=== PATIENT | male | born 1950 | race Caucasian/White ===

== ENCOUNTER 2018-03-27 09:53 | Outpatient (CLI) | payer OTHER ==
[~2018-03-27] VITALS: Ht 182.9 cm; Wt 88.5 kg
[~2018-03-27 09:53] MED LIST: AMLO5TAB7 PO; DLT240CCR PO; LOSA100T8 PO; METO100T5 PO; TRIA1CAP4 PO
== END 2018-03-27 10:12 | disposition home or self-care (01) ==
LOC: PREOP 09:53
PROVIDERS: ATTEND Surgery
DX: Z01.818 Encounter for other preprocedural examination (principal)

== ENCOUNTER → 2018-03-28 | Day surgery (SDC) | payer MEDICARE, OTHER ==
[~2018-03-28] VITALS: Ht 182.9 cm; Wt 88.5 kg
[~2018-03-28] MED LIST changes: +ACETAMINOPHEN 325 MG TABLET PO PRN; +HURRICAINE EXT TUBE (BENZOCAINE) ONE; +HYDROcodone/APAP 5 MG/325 MG (LORTAB) TAB PO PRN; +LIDOCAINE JELLY 2% 6 ML SYRINGE MM PRN; +LIDOCAINE JELLY 2% 6 ML SYRINGE ONE; +MIDAZOLAM 2 MG/2 ML (VERSED) VIAL IVP ONE; +MIDAZOLAM 2 MG/2 ML (VERSED) VIAL ONE; +NS IV 500 ML 500 ML ONE; +ONDANSETRON 4 MG/2 ML (SDV) Z0FRAN IV PRN; +fentaNYL INJECTION 100 MCG/2 ML AMP IVP ONE; +fentaNYL INJECTION 100 MCG/2 ML AMP ONE; +morphine INJ 10 MG/ML 1ML (SYR OR VIAL) IV PRN
[2018-03-28] MEDS: NS IV 500 ML 500 ML IV PRN ×2 (10:00→11:42)
[2018-03-28 10:08] VITALS: BP 132/81
--- NOTE | 2018-03-28 10:19 | Conscious Sedation/ASA ---
Conscious Sedation Pre-Proced Time 10:15 ASA Score 2 For ASA 3 and 4: Consider anesthesia and medical clearance. Also, for patients with a history of failed moderate sedation consider anesthesia. Airway Lungs Heart ASA score ASA 1: a normal healthy patient ASA 2: a patient with a mild systemic disease (mid diabetes, controlled hypertension, obesity ASA 3: a patient with a severe systemic disease that limits activity (angina , COPD, prior Myocardial infarction) ASA 4: a patient with an incapacitating disease that is a constant threat to life (CHF, renal failure) ASA 5: a moribund patient not expected to survive 24 hrs. (ruptured aneurysm) ASA 6: a declared brain patient whose organs are being harvested. For emergent operations, add the letter E after the classification Mallampati Classification Grade 2 Sedation Plan Analgesia, Amnesia, Plan communicated to team members, Discussed options with patient/fam, Discussed risks with patient/fam The patient is an appropriate candidate to undergo the planned procedure, sedation, and anesthesia. The patient immediately re-assessed prior to indication. SALVADOR ROBERTS MD Mar 28, 2018 10:19 am
--- NOTE | 2018-03-28 10:20 | Progress Note-Pre Operative ---
Pre-Operative Progress Note H&P Reviewed The H&P was reviewed, patient examined and no changes noted. Date Seen by Provider: Mar 28, 2018 Time Seen by Provider: 10:15 Date H&P Reviewed: Mar 28, 2018 Time H&P Reviewed: 10:15 Pre-Operative Diagnosis: screening colonoscopy SALVADOR ROBERTS MD Mar 28, 2018 10:20 am
--- NOTE | 2018-03-28 12:07 | Progress Note-Post Operative ---
Post-Operative Progess Note Surgeon (s)/Flight Radio Operator (s) Surgeon SALVADOR ROBERTS MD Flight Radio Operator: none Pre-Operative Diagnosis screening colonoscopy Post-Operative Diagnosis chronic stage 2 ext and int hemorrhoids, mild-mod sigmoid diverticulosis. Procedure & Operative Findings Date of Procedure 03/28/18 Procedure Performed/Findings Colonoscopy. Anesthesia Type CS Estimated Blood Loss Estimated blood loss (mL): minimal Specimens/Packing Specimens Removed none SALVADOR ROBERTS MD Mar 28, 2018 12:07 pm
--- NOTE | 2018-03-28 12:08 | Discharge Inst-Surgical ---
D/C Lap Instructions-ARMANDO Follow Up 10 yrs or PRN Activity as tolerated High Fiber Diet 25g or more per day Avoid Alcohol, Caffeine, Spicy [place] and Acid foods. Drink 64 fluid oz or more of fluids per day. Symptoms to Report: Fever over 101 degree F, Nausea/Vomiting If any problems/questions: Contact your physician or go to Emergency Room SALVADOR ROBERTS MD Mar 28, 2018 12:08 pm
[2018-03-28 12:20] VITALS: BP 118/65
[2018-03-28 12:45] VITALS: BP 110/70
[2018-03-28 14:02] VITALS: BP 110/70
--- NOTE | 2018-03-28 19:10 | OPERATIVE REPORT ---
DATE OF SERVICE: 03/28/2018 ATTENDING PRIMARY CARE PHYSICIAN: Dr. Greenfield. PREOPERATIVE DIAGNOSIS: Screening colonoscopy. POSTOPERATIVE DIAGNOSIS: Mild chronic stage II external and internal hemorrhoids, mild to moderate sigmoid diverticulosis. PROCEDURE: Colonoscopy. SURGEON: Salvador Roberts MD ANESTHESIA: Conscious sedation. ESTIMATED BLOOD LOSS: Minimal. FINDINGS: Chronic stage II external and internal hemorrhoids, not actively edematous nor inflamed and no bleeding. Prostate gland was palpable and appeared normal. There was mild to moderate sigmoid diverticulosis. There were no signs of diverticulitis or bleeding. The remainder of the colon was normal. DISPOSITION: The patient tolerated the procedure well. PROCEDURE IN DETAIL: The patient was brought to the endoscopy suite, laid in left lateral decubitus position. After adequate IV pain and sedative medications and conscious sedation anesthesia, a digital rectal examination was performed. Chronic mild stage II external and internal hemorrhoids were identified, which are not actively edematous or inflamed and no bleeding. Normal sphincter tone was felt and there were no palpable masses. Prostate gland was palpable and appeared normal. The endoscope was then intubated into the anus and the rectum gently insufflated. The endoscope was then advanced through the valves of [place] of the rectum with no polyps or any neoplasms identified. We then proceeded through the sigmoid colon where mild to moderate sigmoid diverticulosis identified. There were no mucosal inflammatory changes to indicate any active diverticulitis. There were also no polyps or any neoplasms identified. The endoscope was then advanced to the remainder of the descending, transverse and ascending colon of the cecum. These segments were normal. There were no polyps or any neoplasms identified throughout the colon or rectum. The endoscope was then slowly withdrawn while taking a second look and suctioning of residual air with no additional findings. The patient tolerated the procedure well. We will recommend continued medical management with a high fiber diet with at least 30 grams of fiber per day as well as at least 64 fluid ounces of water daily to promote soft stools on a daily basis and no straining upon defecation. We feel that the most likely etiology of his rectal bleeding was due to the hemorrhoidal bleed versus diverticulosis and the high fiber diet should be preventative for both issues. He does not have any first degree family history of colon cancer and no polyps were identified and he may wait another 10 years for his next colonoscopy. However, sooner if he becomes symptomatic. Job ID: [id number] DocumentID: [id number] Dictated Date: 03/28/2018 12:06:06 Desk Sergeant Date: 03/28/2018 19:09:43 Dictated By: SALVADOR ROBERTS MD
== END ==
LOC: ENDO 09:29
PROVIDERS: ATTEND Surgery
DX: Z12.11 Encounter for screening for malignant neoplasm of colon (principal); K57.30 Diverticulosis of large intestine without perforation or abscess without bleeding; K64.1 Second degree hemorrhoids; I10 Essential (primary) hypertension; Z79.899 Other long term (current) drug therapy; Z87.891 Personal history of nicotine dependence

== ENCOUNTER → 2021-08-05 | Outpatient (CLI) | payer MEDICARE, OTHER ==
[~2021-08-05] MED LIST changes: -ACETAMINOPHEN 325 MG TABLET PO PRN; +AMLO-250 PO; -AMLO5TAB7 PO; -HURRICAINE EXT TUBE (BENZOCAINE) ONE; -HYDROcodone/APAP 5 MG/325 MG (LORTAB) TAB PO PRN; -LIDOCAINE JELLY 2% 6 ML SYRINGE MM PRN; -LIDOCAINE JELLY 2% 6 ML SYRINGE ONE; +LOSA100T57 PO; -LOSA100T8 PO; -MIDAZOLAM 2 MG/2 ML (VERSED) VIAL IVP ONE; -MIDAZOLAM 2 MG/2 ML (VERSED) VIAL ONE; -NS IV 500 ML 500 ML ONE; -ONDANSETRON 4 MG/2 ML (SDV) Z0FRAN IV PRN; -fentaNYL INJECTION 100 MCG/2 ML AMP IVP ONE; -fentaNYL INJECTION 100 MCG/2 ML AMP ONE; -morphine INJ 10 MG/ML 1ML (SYR OR VIAL) IV PRN
== END ==
LOC: CARD 14:30
PROVIDERS: ATTEND Family Medicine
DX: R00.0 Tachycardia, unspecified (principal)
CPT/HCPCS: 93005

== ENCOUNTER → 2021-08-11 | Outpatient (CLI) | payer MEDICARE, OTHER | LOC: CARD 10:30 | PROVIDERS: ATTEND Family Medicine | DX: I35.8 Other nonrheumatic aortic valve disorders (principal); I51.7 Cardiomegaly; I49.9 Cardiac arrhythmia, unspecified | CPT/HCPCS: 93306 ==

== ENCOUNTER → 2021-09-28 | Outpatient (CLI) | payer MEDICARE, OTHER ==
[~2021-09-28] MED LIST changes: +CATHETER FLUSH 10 ML SYR IVP PRN; +REGADENOSON 0.4 MG/5 ML SYR (LEXISCAN) IV ONE
[2021-09-28 09:35] VITALS: BP 125/74
--- NOTE | 2021-09-28 17:32 | STRESS TEST ---
DATE OF SERVICE: 09/28/2021 RESTING AND POST REGADENOSON TECHNETIUM-99M TETROFOSMIN SPECT CT IMAGING ORDERING PHYSICIAN: Dr. Urbina. PRIMARY PHYSICIAN: Dr. Greenfield. CLINICAL DIAGNOSIS: Coronary artery disease. Baseline images were carried out after injection of 10.32 mCi of technetium-99m Tetrofosmin. This was followed by 0.4 mg Regadenoson and 29.2 mCi of technetium-99m Tetrofosmin for stress imaging. The patient tolerated the procedure well. The electrocardiogram showed sinus rhythm at baseline. There was nonspecific ST and T-wave abnormality. The electrocardiogram did not change significantly with the Regadenoson infusion. The patient noted headache and mild chest tightness after Regadenoson infusion, which resolved in a few minutes. Review of images at rest and following stress does not indicate any distinct perfusion defects consistent with significant myocardial ischemia or infarction. Gated images show normal global left ventricular systolic function with normal regional wall motion. There appears to be mild cardiomegaly. Left ventricular ejection fraction is calculated to be 61%. Left ventricular end-diastolic volume is 117 mL. CONCLUSIONS: 1. Mild cardiomegaly. 2. Normal regional wall motion. 3. No evidence of significant myocardial ischemia or infarction on this study. Job ID: [id number] DocumentID: [id number] Dictated Date: 09/28/2021 15:57:35 Ostomy Rn Date: 09/28/2021 17:32:04 Dictated By: ZACH URBINA MD, MA, FACP, FACC,
== END ==
LOC: CARD 08:00
PROVIDERS: ATTEND Internal Medicine Cardiovascular Disease
DX: I51.7 Cardiomegaly (principal); I25.10 Atherosclerotic heart disease of native coronary artery without angina pectoris
CPT/HCPCS: 78452; 93017; 93225; 93226; A9502

== ENCOUNTER 2023-03-27 19:57 | Emergency (ER) | payer MEDICARE, OTHER ==
[~2023-03-27] VITALS: Ht 183 cm; Wt 95.3 kg
[~2023-03-27 19:57] MED LIST changes: -CATHETER FLUSH 10 ML SYR IVP PRN; -LOSA100T57 PO; +LOSA100T58 PO; -REGADENOSON 0.4 MG/5 ML SYR (LEXISCAN) IV ONE; +TRIA1CAP84 PO
[2023-03-27] MEDS ORDERED: NS IV 1000 ML 1,000 ML IV STA (20:18)
[2023-03-27 20:24] LABS: BASOPHILS % (AUTO) 0 % (0-10); HEMOGLOBIN 14.6 g/dL (13.3-17.7); LYMPHOCYTES % (AUTO) 33 % (12-44)
[2023-03-27 20:25] LABS: EOSINOPHILS # (AUTO) 0.1 10^3/uL (0.0-0.3); EOSINOPHILS % (AUTO) 1 % (0-10); HEMATOCRIT 42 % (40-54); LYMPHOCYTES # (AUTO) 1.7 10^3/uL (1.0-4.0); MEAN CORPUSCULAR HEMOGLOBIN 34 pg (25-34); MEAN CORPUSCULAR HGB CONC 35 g/dL (32-36); MEAN CORPUSCULAR VOLUME 96 fL (80-99); MEAN PLATELET VOLUME 10.9 fL (9.0-12.2); MONOCYTES # (AUTO) 0.2 10^3/uL (0.0-1.0); MONOCYTES % (AUTO) 3 % (0-12); NEUTROPHILS # (AUTO) 3.2 10^3/uL (1.8-7.8); NEUTROPHILS % (AUTO) 62 % (42-75); PLATELET COUNT 119 10^3/uL (130-400); WHITE BLOOD COUNT 5.2 10^3/uL (4.3-11.0)
--- NOTE | 2023-03-27 20:26 | ED Cough/URI ---
General Chief Complaint: Cough/Cold/Flu Symptoms Stated Complaint: NAUSEOUS, BP PROBLEMS, CHILLS Nursing Triage Note: PT AMB TO RM 9 W C/O HTN, NAUSEA, AND CHILLS SX 1700 TODAY. PT DENIES PAIN, A&OX4. PT REPORTS HE RECEIVED FLU SHOT AT 1000 THIS AM. Source: patient Exam Limitations: no limitations (ARELY RIGGS) History of Present Illness Date Seen by Provider: Mar 27, 2023 Time Seen by Provider: 20:25 Initial Comments Patient is a 73-year-old male who presents to the ED for flulike symptoms. Symptoms started around 5 PM this evening. Reports body aches, chills and not feeling well. States he is having hot and cold flashes. Reports generalized pain and discomfort. States he did receive his influenza vaccine around 10 AM this morning. History of hypertension denies diabetes, coronary artery disease, CHF, COPD or asthma. Denies of any vomiting diarrhea or urinary symptoms, cough, sore throat or ear pain. Patient denies taking thing at home for his symptoms. (ARELY RIGGS) Allergies and Home Medications Allergies Coded Allergies: Sulfa (Sulfonamide Antibiotics) (Verified Allergy, Unknown, 03/27/18) Patient Home Medication List Home Medication List Reviewed: Yes (ARELY RIGGS) Amlodipine Besylate (Amlodipine Besylate) 5 Mg Tablet, 5 MG PO DAILY, (Reported) Entered as Reported by: GONZALES GUTIÉRREZ on 03/27/18 09 Losartan Potassium (Losartan Potassium) 100 Mg Tablet, 100 MG PO DAILY, (Reported) Entered as Reported by: GONZALES GUTIÉRREZ on 03/27/18934 Triamterene/Hydrochlorothiazid (Triamterene-Hctz 37.5-25 mg Cp) 1 Each Capsule, 1 EACH PO DAILY, (Reported) Entered as Reported by: GONZALES GUTIÉRREZ on 03/27/18934 Review of Systems Review of Systems Constitutional: chills; No diaphoresis; malaise, weakness EENTM: No hearing loss, No ear pain, No blurred vision, No double vision Respiratory: No cough Cardiovascular: No chest pain Gastrointestinal: No abdominal pain, No diarrhea, No nausea, No vomiting Genitourinary: No decreased output, No discharge Musculoskeletal: No back pain, No joint pain Skin: No change in color, No change in hair/nails (ARELY RIGGS) All Other Systems Reviewed Negative Unless Noted: Yes (ARELY RIGGS) Past Zsmgbpg-[id number]-Zpaklq Hx Patient Social History Tobacco Use?: No Use of E-Cig and/or Vaping dev: No Substance use?: No Alcohol Use?: Yes Alcohol type: Beer Alcohol Frequency: Daily (ARELY RIGGS) Immunizations Up To Date Influenza Vaccine Up-to-Date: Yes; Up-to-Date (ARELY RIGGS) Seasonal Allergies Seasonal Allergies: No (ARELY RIGGS) Past Medical History Hypertension Arthritis (ARELY RIGGS) Physical Exam Vital Signs - First Documented 03/27/23 20:10 Temp 39.3 Pulse 97 Resp 18 B/P (MAP) 170/91 (117) Pulse Ox 98 O2 Delivery Room Air (SHANTEL,BRETT K DO) Capillary Refill : Less Than 3 Seconds (ARELY RIGGS) Height: 6'0.00" Weight: 195lbs. 0.0oz. 88.225994sy; 28.00 BMI Method: General Appearance: WD/WN, no apparent distress Eyes: Bilateral Eye Normal Inspection, Bilateral Eye PERRL, Bilateral Eye Abnor mal EOM HEENT: PERRL/EOMI, normal ENT inspection, TMs normal, pharynx normal Neck: non-tender, full range of motion, supple Respiratory: chest non-tender, lungs clear, normal breath sounds, no respiratory distress, no accessory muscle use Cardiovascular: regular rate, rhythm, no edema, no gallop, no JVD Gastrointestinal: normal bowel sounds, non tender, soft, no pulsatile mass Extremities: normal range of motion, non-tender, normal inspection, no pedal edema 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, no motor/sensory deficits, alert, normal mood/affect, oriented x 3 Skin: normal color, warm/dry (ARELY RIGGS) Progress/Results/Core Measures Suspected Sepsis SIRS Temperature: Pulse: 97 Respiratory Rate: 18 Laboratory Tests 03/27/23 20:15: White Blood Count 5.2 Blood Pressure 170 /91 Mean: 117 Laboratory Tests 03/27/23 20:15: Creatinine 0.88, Platelet Count 119L, Total Bilirubin 1.2H (ARELY RIGGS) Results/Orders Lab Results Laboratory Tests Test 03/27/23 20:15 03/27/23 20:23 03/27/23 21:20 Range/Units White Blood Count 5.2 4.3-11.0 10^3/uL Red Blood Count 4.32 4.30-5.52 10^6/uL Hemoglobin 14.6 13.3-17.7 g/dL Hematocrit 42 40-54 % Mean Corpuscular Volume 96 80-99 fL Mean Corpuscular Hemoglobin 34 25-34 pg Mean Corpuscular Hemoglobin Concent 35 32-36 g/dL Red Cell Distribution Width 12.4 10.0-14.5 % Platelet Count 119 L 130-400 10^3/uL Mean Platelet Volume 10.9 9.0-12.2 fL Immature Granulocyte % (Auto) 0 % Neutrophils (%) (Auto) 62 42-75 % Lymphocytes (%) (Auto) 33 12-44 % Monocytes (%) (Auto) 3 0-12 % Eosinophils (%) (Auto) 1 0-10 % Basophils (%) (Auto) 0 0-10 % Neutrophils # (Auto) 3.2 1.8-7.8 10^3/uL Lymphocytes # (Auto) 1.7 1.0-4.0 10^3/uL Monocytes # (Auto) 0.2 0.0-1.0 10^3/uL Eosinophils # (Auto) 0.1 0.0-0.3 10^3/uL Basophils # (Auto) 0.0 0.0-0.1 10^3/uL Immature Granulocyte # (Auto) 0.0 0.0-0.1 10^3/uL Percent Immature Platelet Fraction 8.7 H 0.0-7.6 % Sodium Level 132 L 135-145 MMOL/L Potassium Level 3.1 L 3.6-5.0 MMOL/L Chloride Level 95 L 98-107 MMOL/L Carbon Dioxide Level 23 21-32 MMOL/L Anion Gap 14 5-14 MMOL/L Blood Urea Nitrogen 8 7-18 MG/DL Creatinine 0.88 0.60-1.30 MG/DL Estimat Glomerular Filtration Rate 91 BUN/Creatinine Ratio 9 Glucose Level 94 70-105 MG/DL Calcium Level 10.0 8.5-10.1 MG/DL Corrected Calcium 9.7 8.5-10.1 MG/DL Total Bilirubin 1.2 H 0.1-1.0 MG/DL Aspartate Amino Transf (AST/SGOT) 47 H 5-34 U/L Alanine Aminotransferase (ALT/SGPT) 47 0-55 U/L Alkaline Phosphatase 78 40-136 U/L C-Reactive Protein High Sensitivity 0.41 0.00-0.50 MG/DL Total Protein 8.2 6.4-8.2 GM/DL Albumin 4.4 3.2-4.5 GM/DL Influenza Type A (RT-PCR) Not Detected Not Detecte Influenza Type B (RT-PCR) Not Detected Not Detecte SARS-CoV-2 RNA (RT-PCR) Not Detected Not Detecte Urine Color YELLOW Urine Clarity CLEAR Urine pH 7.5 5-9 Urine Specific [place] 1.015 L 1.016-1.022 Urine Protein NEGATIVE NEGATIVE Urine Glucose (UA) NEGATIVE NEGATIVE Urine Ketones NEGATIVE NEGATIVE Urine Nitrite NEGATIVE NEGATIVE Urine Bilirubin NEGATIVE NEGATIVE Urine Urobilinogen 0.2 < = 1.0 MG/DL Urine Leukocyte Esterase NEGATIVE NEGATIVE Urine RBC (Auto) TRACE H NEGATIVE Urine RBC 2-5 H /HPF Urine WBC RARE /HPF Urine Squamous Epithelial Cells NONE /HPF Urine Crystals NONE /LPF Urine Bacteria NEGATIVE /HPF Urine Casts NONE /LPF Urine Mucus NEGATIVE /LPF Urine Culture Indicated NO (SHANTELBRETT K DO) Medications Given in ED Current Medications Medications Dose Ordered Sig/Rafita Route Start Time Stop Time Status Last Admin Dose Admin Acetaminophen 1,000 mg ONCE ONCE PO 03/27/23 20:30 03/27/23 20:31 DC 03/27/23 20:39 1,000 MG Ondansetron HCl 4 mg ONCE ONCE PO 03/27/23 22:15 03/27/23 22:16 DC 03/27/23 22:28 4 MG Ondansetron HCl 4 mg STK-MED ONCE .ROUTE 03/27/23 21:20 03/27/23 21:23 DC 03/27/23 21:24 4 MG Potassium Chloride 20 meq ONCE ONCE PO 03/27/23 21:15 03/27/23 21:16 DC 03/27/23 22:28 20 MEQ (SHANTEL,BRETT K DO) Vital Signs/I&O 03/27/23 03/27/23 20:10 22:33 Temp 39.3 Pulse 97 103 Resp 18 B/P (MAP) 170/91 (117) 119/81 Pulse Ox 98 O2 Delivery Room Air 03/28/23 00:00 Intake Total 2000 ml Balance 2000 ml (SHANTELRBETT Pascal ) Vital Signs/I&O Capillary Refill : Less Than 3 Seconds (ARELY RIGGS) Blood Pressure Mean: 117 Departure Communication (PCP) Patient is a 73-year-old male who presents ED with flulike symptoms. Symptoms started around 5 PM. Patient did receive his influenza vaccine earlier this morning. Patient has no chest pain, cough, abdominal pain vomiting or diarrhea. States he is having chills body aches. Lab work was ordered. Differential diagnosis postvaccine fever, allergic reaction, viral syndrome. He does not appear toxic but does appear ill. Patient was febrile. Patient hematology was grossly unremarkable. Chemistry showed sodium 132, potassium 3.1. Otherwise grossly unremarkable. COVID influenza negative. Urinalysis negative for infection. Did not image his abdomen or pelvis since she is having no abdominal pain. His lung sounds were clear throughout. He has no chest pain or shortness of breath suggesting pulmonary or cardiac etiology. He did vomit did receive Zofran. 2 L of fluid. Patient states he feels much better after the IV fluids and nausea medication. Likely more secondary to post vaccine fever. Likely reaction to the vaccine. There is no evidence of rash. He was tolerating secretions. Does not appear in respiratory distress. He was observed here in the ED with continue improvement of symptoms. At this time medically stable. Patient will be discharged with oral Zofran. Alternate Tylenol ibuprofen. Suggest follow-up your PCP in 2 to 3 days for reevaluation. If any worsening symptoms return back to ED for (ARELY RIGGS) Impression Primary Impression: Post-vaccination fever Disposition: 01 HOME, SELF-CARE Condition: Stable Departure-Patient Inst. Decision time for Depature: 22:04 (ARELY RIGGS) Referrals: JERO HEADLEY DO (PCP/Family) Primary Care Physician Patient Instructions: Fever, Adult (DC) Add. Discharge Instructions: Alternate Tylenol ibuprofen. If any worsening symptoms return back to ED for further evaluation. All discharge instructions reviewed with patient and/or family. Voiced understanding. ATTENDING PHYSICIAN NOTE: I WAS PHYSICALLY PRESENT ER PHYSICIAN, BUT I WAS NOT INVOLVED IN ANY DECISION MAKING OR ANY CARE OF THIS PATIENT, AND I AM NOT COLLABORATING PHYSICIAN. (BRETT FUNES DO) RAELY RIGGS Mar 27, 2023 20:26 BRETT FUNES DO Mar 28, 2023 05:18
[2023-03-27] MEDS ORDERED: ACETAMINOPHEN 500 MG TABLET PO ONE (20:30)
[2023-03-27 20:45] LABS: ALBUMIN 4.4 GM/DL (3.2-4.5); BILIRUBIN,TOTAL 1.2 MG/DL (0.1-1.0); CREATININE SERUM 0.88 MG/DL (0.60-1.30); POTASSIUM 3.1 MMOL/L (3.6-5.0); TOTAL PROTEIN 8.2 GM/DL (6.4-8.2)
[2023-03-27] MEDS ORDERED: POTASSIUM CHLORIDE 20 MEQ TABLET PO ONE (21:15)
[2023-03-27] MEDS ORDERED: ONDANSETRON INJECTION 4 MG/2 ML (SDV) ONE (21:20)
[2023-03-27] MEDS ORDERED: ONDANSETRON INJECTION 4 MG/2 ML (SDV) IVP ONE (21:30)
[2023-03-27 21:41] LABS: BACTERIA,URINE NEGATIVE /HPF; BILIRUBIN,URINE NEGATIVE (NEGATIVE); CLARITY,URINE CLEAR; COLOR,URINE YELLOW; GLUCOSE, URINE (UA) NEGATIVE (NEGATIVE); KETONES,URINE NEGATIVE (NEGATIVE); LEUKOCYTE ESTERASE ,URINE NEGATIVE (NEGATIVE); NITRITE,URINE NEGATIVE (NEGATIVE); PH,URINE 7.5 (5-9); PROTEIN,URINE NEGATIVE (NEGATIVE); WBC,URINE RARE /HPF
[2023-03-27] MEDS ORDERED: LACTATED RINGERS 1,000 ML 1,000 ML IV SCH (21:45)
[2023-03-27] MEDS ORDERED: RX-ONDANSETRON 4 MG ODT (ZOFRAN) PPK #4 PO ONE (22:15)
[2023-03-27 22:33] VITALS: BP 119/81
== END 2023-03-27 22:36 | disposition home or self-care (01) ==
LOC: EDUNIT# 19:57 → ER 20:00
DX: R50.83 Postvaccination fever (principal); Z20.822 Contact with and (suspected) exposure to COVID-19
CPT/HCPCS: 36415; 80053; 81000; 85025; 86141; 87636